=== PATIENT | female | born 1980 | race Caucasian/White ===

== ENCOUNTER 2020-01-13 21:14 | Emergency (ER) | payer OTHER ==
[~2020-01-13] VITALS: Ht 160 cm; Wt 77.1 kg
--- NOTE | 2020-01-13 21:22 | NUR ---
BIBRA 839 FOR C/O ABD PAIN AND NAUSEA X 3 DAYS. PT WAS TESTED +FOR COVID ON 12/27/19, - DIARRHEA; pt to bed 8, awke, alert, -sob, -cp. -vomitting, pt on monitor, vss, not in acute distress, pending er provider domi
[2020-01-13] MEDS ORDERED: MORPHINE SULFATE INJ 2 MG/ML DISP.SYRIN IV ONE (22:00)
[2020-01-13] MEDS ORDERED: IV NS 0.9% 1,000 ML BAG IV ONE (22:00)
[2020-01-13] MEDS ORDERED: ONDANSETRON HCL/PF 4 MG/2 ML VIAL IVP ONE (22:00)
[2020-01-13] MEDS ORDERED: ONDANSETRON HCL/PF 4 MG/2 ML VIAL ONE (22:30)
[2020-01-13] MEDS ORDERED: MORPHINE SULFATE INJ 4 MG/ML DISP.SYRIN ONE (22:30)
[2020-01-13] MEDS ORDERED: IOHEXOL-300 100 ML VIAL IV ONE (22:34)
[2020-01-13] MEDS ORDERED: IV NS 0.9% 250 ML IV ONE (22:34)
[2020-01-13 22:40] LABS: BASOPHILS # (AUTO) 0.1 /CMM (0.0-0.2); BASOPHILS % (AUTO) 0.6 % (0.0-2.0); EOSINOPHILS % (AUTO) 1.3 % (0.0-6.0); HEMATOCRIT 41 % (33-45); LYMPHOCYTES # (AUTO) 2.1 /CMM (0.8-4.8); LYMPHOCYTES % (AUTO) 19.3 % (20.0-44.0); MEAN CORPUSCULAR HGB CONC 32 g/dl (31.0-36.0); MEAN CORPUSCULAR VOLUME 84 fL (82-100); MONOCYTES # (AUTO) 0.6 /CMM (0.1-1.30); MONOCYTES % (AUTO) 5.2 % (2.0-12.0); NEUTROPHILS # (AUTO) 7.8 /CMM (1.8-8.9); NEUTROPHILS % (AUTO) 73.6 % (43.0-81.0); PLATELET COUNT (AUTO) 304 /CMM (150-450); RED BLOOD CELL COUNT(AUTO) 4.81 MIL/uL (4.0-5.2); WHITE BLOOD COUNT (AUTO) 10.6 K/uL (4.3-11.0)
[2020-01-13 22:59] LABS: ALBUMIN 3.1 g/dL (3.4-5.0); BILIRUBIN,DIRECT 0.1 mg/dL (0.0-0.2); BILIRUBIN,TOTAL 0.3 mg/dL (0.2-1.0); CREATININE 0.8 mg/dL (0.6-1.3); POTASSIUM 3.9 mmol/L (3.5-5.1); TOTAL PROTEIN, SERUM 6.8 g/dL (6.4-8.2)
[2020-01-13 23:11] LABS: APPEARANCE,URINE CLOUDY (CLEAR); BILIRUBIN,URINE NEGATIVE (NEGATIVE); BLOOD, URINE TRACE-INTA Ery/uL (NEGATIVE); COLOR,URINE YELLOW (YELLOW); KETONES,URINE NEGATIVE (NEGATIVE); LEUKOCYTE ESTERASE ,URINE LARGE (NEGATIVE); NITRITE, URINE NEGATIVE (NEGATIVE); PH,URINE 8.5 (5.0-8.0); PROTEIN,URINE NEGATIVE (NEGATIVE); UGLUCOSE NEGATIVE (NEGATIVE); UROBILINOGEN,URINE 0.2 EU/dL (0.2)
[2020-01-13 23:14] LABS: BACTERIA,URINE Moderate /HPF (None Seen); SQUAMOUS EPITHELIAL CELL,UR Many /HPF (None Seen); WBC,URINE TOO NUMEROUS TO COUN /HPF (0-3)
--- NOTE | 2020-01-14 01:25 | NUR ---
Patient discharged to home in stable condition. Written and verbal after care instructions given. Patient verbalizes understanding of instruction. IV removed. Catheter intact and site benign. Pressure and 4x4 applied to site. No bleeding noted.
--- NOTE | 2020-01-14 02:00 | NUR ---
PT CURRENTLY STAYS AT [facility] D/T +[facility]. PT IS UNABLE TO GET TRANSPORT BACK. AMBULANCE WILL BE CALLED FOR TRANSPORT
--- NOTE | 2020-01-14 02:45 | NUR ---
PT CURRENTLY STAY AT: [facility] [id number] [facility] [employer] SALESPERSON #[phone]
--- NOTE | 2020-01-14 02:55 | NUR ---
ARRANGED TRANSPORT THROUGH CALL THE CAR SPOKE WITH [facility]. [facility] ETA FOR TRANSPORT IS 90-120 MINS. CONFIRMATION #[id number].
--- NOTE | 2020-01-14 05:55 | NUR ---
FF UP WITH [facility] DIRECTLY, PER STAFF, HE DOESNT SEE ANY RECORD OF CALL THE CAR ARRANGING TRANSPORT
--- NOTE | 2020-01-14 06:07 | NUR ---
SPOKE TO GERA WYATT WITH [facility] PER DARNELL
--- NOTE | 2020-01-14 08:50 | NUR ---
FOLLOWED UP WITH CALL THE CAR, PER LAYLA, THE AMBULANCE IS ARRIVING WE SPOKE
[2020-01-14 08:52] VITALS: BP 112/74
--- NOTE | 2020-01-14 09:00 | NUR ---
REPORT GIVEN TO EMT FOR PT TRANSFER BACK TO [facility].
== END 2020-01-14 01:27 | disposition home or self-care (01) ==
LOC: ER 21:21 → EDBD 21:21 → ER 01-14 01:27
DX: R10.84 Generalized abdominal pain (principal); R14.0 Abdominal distension (gaseous); R11.0 Nausea; J45.909 Unspecified asthma, uncomplicated; E11.9 Type 2 diabetes mellitus without complications; F31.9 Bipolar disorder, unspecified; F41.9 Anxiety disorder, unspecified; Z90.49 Acquired absence of other specified parts of digestive tract; Z98.890 Other specified postprocedural states; Z59.0 Homelessness
CPT/HCPCS: 36415; 71045; 74177; 80048; 80076; 81001; 83690; 84703; 85025; 85730; 96361; 96374; 96375; 99285; J2270; J2405; J7030; J7050; Q9967; 81000-TC